=== PATIENT | male | born 1940 | race Caucasian/White ===

== ENCOUNTER 2016-11-17 07:52 | Day surgery (SDC) | payer MEDICARE ==
[~2016-11-17 07:52] MED LIST: ACYCLOVIR400 M1 PO; ALBUTEROL I0.5 ML/EA AERO NEB; ALDACTAZIDE 25/1 TAB; ALLOPURINOL100 MG; ALLOPURINOL300 M1 PO; ALLOPURINOL300 MG; ALLOPURINOL300 MG PO; AMLODIPINE BESYL5 MG PO; AMOXICILLIN500 M PO; AMOXICILLIN500 M2 PO; AMOXICILLIN875 M1 PO; ARIXTRA7.5 MG/0.6 SQ; AUGMENTIN 875-1 EAC2 PO; AUGMENTIN 875-11 TAB; AUGMENTIN875 MG PO; B 6; BACTROBAN15 GM TP; COLACE100 MG; COLACE100 MG PO; COMBIVENT INH14.7 GM; COMPAZINE10 M; COREG25 M1 PO; CORTEF20 MG PO; CORTEF5 MG PO; COUMADIN1 M1 PO; COUMADIN1 MG; COUMADIN2 MG PO; COUMADIN3 M1 PO; COUMADIN4 M1 PO; COUMADIN4 MG PO; COUMADIN5 MG; COUMADIN5 MG PO; COUMADIN6 MG; CULTURELLE1 CA1 PO; CULTURELLE1 EAC1 PO; DECADRON4 MG PO; DEXAMETHASONE4 MG; DICLOXACILLIN500 MG; DIFLUCAN100 MG; DILAUDID2 MG PO; DULCOLAX5 MG; DURAGESIC1 EAC2 TD; DURAGESIC1 EAC2 TOP; DURAGESIC1 PAT; DURAGESIC1 PAT TOP; DURAGESIC1 PATCH . TOP; DURAGESIC1 PATCH .7; DURAGESIC1 PATCH .7 TOP; EFFIENT10 MG PO; ENALAPRIL MALEAT5 MG PO; FAMVIR250 MG; FAMVIR500 MG; FENTANYL1 PATCH .7; FLOMAX0.4 MG PO; GABAPENTIN300 MG; H; HYDROCORTISONE5 M1 PO; JANTOVEN4 M1; LEVAQUIN500 M1 PO; LEVAQUIN750 MG PO; LOVENOX100 MG/ SQ; LOVENOX120 MG/0.1 SC; LOVENOX30 MG/0.1 SQ; LOVENOX80 MG/0.8 SQ; LYRICA50 MG PO; METAMUCIL1 PKT; METOPROLOL TART50 M2 PO; METRONIDAZOLE500 M3 PO; MILK OF MA800 MG/5 M PO; MIRALAX12 EA; MORPHINE PO; MORPHINE SULFAT1 PO; MORPHINE SULFAT3 PO; MORPHINE SULFAT30 M6 PO; MUCINEX600 MG PO; MULTIPLE VITAM1 EACH PO; MULTIVITAMIN W/1 T PO; MULTIVITAMIN1 CAP; MULTIVITAMIN1 TAB; MULTIVITAMINS1 EAC6 PO; NEURONTIN300 MG; NEURONTIN300 MG PO; NEURONTIN600 MG; NEURONTIN600 MG PO; NORCO 10/325 TA1 TAB; NYSTATIN100000 UNI SSW; OMNICEF300 MG PO; OXYCONTIN20 MG; OXYCONTIN20 MG PO; PENICILLIN; PERCOCET 5/3251 TAB; PERCOCET 5/3251 TAB PO; PREDNISONE5 MG PO; PROCHLORPERAZIN10 M1 PO; PROTONIX40 MG; REVLIMID10 MG PO; REVLIMID25 MG PO; ROXANOL20 MG/ML; SENNA8.6 M; SENNA8.6 M PO; SENOKOT8.6 MG; TESSALON PERLE100 MG PO; TYLENOL325 M1 PO; TYLENOL325 MG PO; TYLENOL650 MG; TYLENOL650 MG PO; ULTRAM50 MG PO; UNKNOWN ANTIBIOTIC; VALTREX500 MG; VANCOMYCIN HCL PO; VASOTEC10 M2 PO; VASOTEC10 MG; VASOTEC5 M1 PO; VASOTEC5 MG; VASOTEC5 MG PO; VITAMIN B-6100 MG PO; VITAMIN B-650 MG; VITAMIN B650 MG PO; VITAMIN D400 UNIT; ZOFRAN ODT4 MG/UDTAB PO; ZOFRAN ODT8 MG/TAB PO; ZOLPIDEM TARTRAT5 M2 PO; ZOVIRAX TP; ZOVIRAX200 MG PO; ZOVIRAX800 MG PO; [UNRECOGNIZED DRUG - OTHER]; [UNRECOGNIZED DRUG - OTHER]
[2016-11-17 08:41] LABS: BASO % 0.4 % (0-2); EOSINOPHIL ABSOLUTE COUNT 0.2 tho/cmm (0.0-0.7); HGB-HEMOGLOBIN 13.4 gm/dl (13.5-17.0); IMMATURE GRANULOCYTES ABSOLUTE 0.01 tho/cmm (0-0.03); IMMATURE GRANULOCYTES PERCENT 0.2 % (0-0.3); LYMPH % 22.8 % (20-45); LYMPH ABSOLUTE COUNT 1.2 tho/cmm (0.8-4.5); MCH (MEAN CORPUSCULAR HGB) 30.5 pg (28.0-32.0); MCHC MEAN CORPUSCULAR HGB CONC 31.9 % (32.0-36.0); MCV (MEAN CELL VOLUME) 95.7 fl (82.0-96.0); MEAN PLATELET VOLUME 10.7 cmc (9.4-12.4); MONO % 13.6 % (0-12); MONOCYTE ABSOLUTE COUNT 0.7 tho/cmm (0.0-1.2); NEUTROPHIL ABSOLUTE COUNT 3.2 tho/cmm (1.6-8.0); NEUTROPHIL-AUTOMATED 3.2 tho/cmm (1.6-8.0); PLATELET COUNT 139 tho/cmm (150-450); RED BLOOD COUNT 4.39 mil/cmm (4.40-5.70); RED CELL DISTRIBUTION WIDTH 14.4 % (12.4-16.4); WHITE BLOOD COUNT 5.3 tho/cmm (4.0-10.0)
[2017-03-23] MEDS ORDERED: NORVASC5 M2 PO (15:10)
[2017-03-23] MEDS ORDERED: REVLIMID5 M1 PO (15:15)
[2017-03-24] MEDS ORDERED: NORVASC5 M2 PO (20:02)
[2017-03-24] MEDS ORDERED: VASOTEC5 M1 PO (20:03)
[2017-05-22] MEDS ORDERED: LOVENOX120 MG/0.1 SC (14:17)
[2017-05-23] MEDS ORDERED: PRINIVIL10 M1 PO (13:24)
[2017-05-23] MEDS ORDERED: PRAVASTATIN SOD20 M1 PO (13:25)
[2017-05-23] MEDS ORDERED: BETAPACE80 M2 PO (13:28)
[2017-05-23] MEDS ORDERED: OXYGEN (13:32)
== END 2016-11-17 12:50 ==
LOC: CTSCAN 07:52 → SHSB 07:58
PROVIDERS: Radiology Diagnostic Radiology
PROC: 0QB23ZX Excision of Right Pelvic Bone, Percutaneous Approach, Diagnostic (ICD-10-PCS; principal; 2016-11-17)
DX: C90.00 Multiple myeloma not having achieved remission (principal); D69.6 Thrombocytopenia, unspecified; D72.821 Monocytosis (symptomatic); J44.9 Chronic obstructive pulmonary disease, unspecified; I50.9 Heart failure, unspecified; Z79.01 Long term (current) use of anticoagulants; Z79.899 Other long term (current) drug therapy; Z88.5 Allergy status to narcotic agent; Z86.718 Personal history of other venous thrombosis and embolism; Z86.711 Personal history of pulmonary embolism; Z98.890 Other specified postprocedural states
CPT/HCPCS: C1830; G0364; J2250; J7030

== ENCOUNTER 2017-01-04 12:11 | Emergency (ER) | payer MEDICARE ==
[2017-01-04] MEDS ORDERED: DURAGESIC1 EAC5 TD (12:47)
[2017-01-04] MEDS ORDERED: FUROSEMIDE40 M2 PO (12:54)
[2017-01-04] MEDS ORDERED: ALDACTONE25 M1 PO (12:54)
[2017-01-04] MEDS ORDERED: COUMADIN5 M2 PO (14:14)
[2017-01-04] MEDS ORDERED: AMILORIDE HCL5 M1 PO (14:15)
[2017-03-23] MEDS ORDERED: NORVASC5 M2 PO (15:10)
[2017-03-23] MEDS ORDERED: REVLIMID5 M1 PO (15:15)
[2017-03-24] MEDS ORDERED: NORVASC5 M2 PO (20:02)
[2017-03-24] MEDS ORDERED: VASOTEC5 M1 PO (20:03)
[2017-05-22] MEDS ORDERED: LOVENOX120 MG/0.1 SC (14:17)
[2017-05-23] MEDS ORDERED: PRINIVIL10 M1 PO (13:24)
[2017-05-23] MEDS ORDERED: PRAVASTATIN SOD20 M1 PO (13:25)
[2017-05-23] MEDS ORDERED: BETAPACE80 M2 PO (13:28)
[2017-05-23] MEDS ORDERED: OXYGEN (13:32)
== END 2017-01-04 14:40 ==
LOC: EDMED 12:11
DX: S09.90XA Unspecified injury of head, initial encounter (principal); S40.012A Contusion of left shoulder, initial encounter; C90.00 Multiple myeloma not having achieved remission; W01.0XXA Fall on same level from slipping, tripping and stumbling without subsequent striking against object, initial encounter; Y92.009 Unspecified place in unspecified non-institutional (private) residence as the place of occurrence of the external cause